=== PATIENT | male | born 1975 | race Hispanic/Latino ===

== ENCOUNTER 2024-05-01 07:48 | Observation (INO) | payer OTHER ==
[2024-05-01] VITALS (21 sets, daily range): BP systolic 107–150; BP diastolic 48–76; PULSE 80–110; RESP 16–20; TEMP 98.1–99; O2SAT 99–100
[~2024-05-01] VITALS: Ht 185.4 cm; Wt 117.9 kg
[2024-05-01 08:12] LABS: BASOPHILS # (AUTO) 0.02 K/uL (0.00-0.20); BASOPHILS % (AUTO) 0.3 % (0.0-5.0); EOSINOPHILS # (AUTO) 0.01 K/uL (0.00-0.70); EOSINOPHILS % (AUTO) 0.1 % (0.0-8.0); HEMATOCRIT 24.9 % (42-54); IMMATURE GRANULOCYTE ABSOLUTE 0.03 K/uL (0-1); LYMPHOCYTES # (AUTO) 0.4 K/uL (1.0-4.8); LYMPHOCYTES % (AUTO) 5.6 % (21.0-51.0); MEAN CORPUSCULAR HEMOGLOBIN 32.2 pg (27.0-33.0); MEAN CORPUSCULAR HGB CONC 34.1 g/dL (32.0-36.0); MEAN CORPUSCULAR VOLUME 94.3 fL (79-99); MONOCYTES # (AUTO) 0.9 K/uL (0.1-1.0); MONOCYTES % (AUTO) 12.4 % (3.0-13.0); NEUTROPHILS # (AUTO) 5.8 K/uL (1.8-7.7); NEUTROPHILS % (AUTO) 81.2 % (40.0-77.0); PLATELET COUNT (AUTO) 124 K/uL (130-400); RED BLOOD CELL COUNT(AUTO) 2.64 MIL/uL (4.50-6.20); RED CELL DISTRIBUTION WIDTH 11.9 % (11.0-15.5); WHITE BLOOD COUNT (AUTO) 7.2 K/uL (4.8-10.8)
--- NOTE | 2024-05-01 08:16 | ERN ---
General Chief Complaint: Shortness of Breath Stated Complaint: SOB, COUGH, FEVER Time Seen by MD: 07:55 Source: patient History of Present Illness Initial Comments Patient is a 49-year-old male coming in to be evaluated for shortness of breath. Patient has a history of end-stage renal disease requiring dialysis and his dialysis session was today. He states that he has been having a cough which has been getting worse along with the cough patient states he has been having fever and chills. Allergies: Coded Allergies: Influenza Virus Vaccines (Unverified Allergy, Intermediate, 05/01/24) adhesive tape (Unverified Allergy, Intermediate, 05/01/24) Past Medical History Past Medical History: Diabetes-Type II, Hypertension Past Surgical History: Other Surgical History Other: LAVG ROS Dictation CONSTITUTIONAL: No chills, no fever, no weakness, no diaphoresis, no malaise. HEAD/FACE: No signs of trauma. EENT: No eye pain, no blurred vision, no tearing, no double vision, no ear pain, no ear discharge, no nose pain, no nasal congestion, no throat pain, no throat swelling, no mouth pain. RESPIRATORY: No cough, no orthopnea, no SOB, no stridor, no wheezing. CARDIOVASCULAR: No chest pain, no edema, no palpitations, no syncope. GASTROINTESTINAL/ABDOMINAL: No abdominal pain, no constipation, no diarrhea, no nausea, no vomiting. GENITOURINARY: No abnormal discharge, no dysuria, no frequent urination, no hematuria. No complaints of pain in the genitals. MUSCULOSKELETAL: No back pain, no gout, no joint pain, no joint swelling, no muscle pain, no muscle stiffness, no neck pain. INTEGUMENTARY: No change in color, no change in hair/nails, no dryness, no lesion, no lumps, no rash. NEUROLOGICAL/PSYCH: No anxiety, not depressed, no emotional problem, no he adache, no numbness, no pre-existing deficit, no history of seizures, no tremors, no weakness. HEMATOLOGIC/LYMPHATIC: Not anemic, no history of blood clots, no apparent bleeding, no bruising, glands not swollen. All Systems Negative, Except as Noted. Physical Exam Physical Exam Dictation VITAL SIGNS: Reviewed. GENERAL APPEARANCE: Alert, oriented x3, no acute distress, obese. HEAD AND FACE: Non-traumatic. EYES: PERRL, pink conjunctivas, eyelid no trauma, anterior chamber clear. EARS: Pinnas intact and no signs of trauma or erythema. Ear canals clear and no discharge. TMs no erythema. NOSE: No discharge, no bleeding. OROPHARYNX: Mouth normal, teeth no caries, tongue pink. Pharynx clear, no erythema. Tonsils no exudates, no abscesses noted. Mucous membrane moist. NECK: Supple, non-tender, no thyromegaly, no masses, no JVD, no bruits. BREAST: Deferred. CHEST: No tenderness, no crepitus, no paradoxical movement, no retractions. LUNGS: Clear, well-ventilated, symmetric, no rales, no wheezing, no rhonchi, no stridor, good breath sounds bilaterally. HEART: Regular rate, regular rhythm, no murmur, no gallops. VASCULAR: No peripheral edema. ABDOMEN: Soft, positive bowel sounds, nondistended, no guarding, nontender, no rebound, no masses no hepatomegaly, no splenomegaly, no Stearns's sign, no hernias. RECTAL: Deferred. GENITAL: Deferred. NEUROLOGICAL: Normal speech, gross motor function intact, gross sensory function intact. MUSCULOSKELETAL: Neck nontender, full range of motion, back nontender, full range of motion. EXTREMITIES: Nontender, full range of motion. SKIN: Color pink, dry, no turgor, no rash, no lacerations, no abrasions, no contusions. LYMPHATICS: Deferred. Results Laboratory and Microbiology Lab and Micro Result Laboratory Tests Test 05/01/24 08:00 05/01/24 08:14 White Blood Count 7.2 K/uL (4.8-10.8) Red Blood Count 2.64 MIL/uL (4.50-6.20) L Hemoglobin 8.5 g/dL (14.0-18.0) L Hematocrit 24.9 % (42-54) L Mean Corpuscular Volume 94.3 fL (79-99) Mean Corpuscular Hemoglobin 32.2 pg (27.0-33.0) Mean Corpuscular Hemoglobin Concent 34.1 g/dL (32.0-36.0) Red Cell Distribution Width 11.9 % (11.0-15.5) Platelet Count 124 K/uL (130-400) L Mean Platelet Volume 10.8 fL (7.5-10.5) H Immature Granulocyte % (Auto) 0.4 % (0-1) Neutrophils (%) (Auto) 81.2 % (40.0-77.0) H Lymphocytes (%) (Auto) 5.6 % (21.0-51.0) L Monocytes (%) (Auto) 12.4 % (3.0-13.0) Eosinophils (%) (Auto) 0.1 % (0.0-8.0) Basophils (%) (Auto) 0.3 % (0.0-5.0) Neutrophils # (Auto) 5.8 K/uL (1.8-7.7) Lymphocytes # (Auto) 0.4 K/uL (1.0-4.8) L Monocytes # (Auto) 0.9 K/uL (0.1-1.0) Eosinophils # (Auto) 0.01 K/uL (0.00-0.70) Basophils # (Auto) 0.02 K/uL (0.00-0.20) Absolute Immature Granulocyte (auto 0.03 K/uL (0-1) Nucleated Red Blood Cells 0.0 % (0.0-0.19) White Cell Morphology Comment See comments Prothrombin Time 11.0 SEC (9.6-11.6) Prothromb Time International Ratio 1.02 (0.85-1.15) Sodium Level 136 mmol/L (136-145) Potassium Level 5.2 mmol/L (3.5-5.1) H Chloride Level 96 mmol/L (101-111) L Carbon Dioxide Level 28 mmol/L (21-32) Blood Urea Nitrogen 71 mg/dL (7-18) H Creatinine 11.5 mg/dL (0.5-1.3) *H Glomerular Filtration Rate Calc 5 mL/min (>90) Random Glucose 105 mg/dL (70-105) Total Calcium 8.5 mg/dL (8.5-10.1) Total Creatine Kinase 133 U/L (21-232) Troponin I High Sensitivity 144 ng/L (4-75) *H B-Type Natriuretic Peptide 2410 pg/mL (0-100) H Influenza Type A Antigen Positive For Type A Influenza Type B Antigen Negative For Type B SARS-CoV-2, RNA, NAAT NEGATIVE SARS CoV-2 Group A Streptococcus Rapid negative (NEGATIVE) Labs Reviewed?: Yes EKG/XRAY/US/CT/MRI EKG Comment 05/01/2024 time 8:14 a.m. Ventricular rate [address] wave elevation depression GA 171 X-RAY Comment IMAGING REPORT Signed PATIENT: AYDE WALDEN MR#: [id number] : 1975 SEX: M AGE: 49 LOCATION: [facility] ORDER 6 STATUS: REG ER REPORT#: [id number] SERVICE 5 REASON: sob ORDERING PHYSICIAN: CLEMENTINE YOUNG MD PROCEDURE: CXR1VW - CHEST 1VW CHEST 1VW REASON: sob COMPARISON: None. FINDINGS: Heart size is normal. There is mild pulmonary vascular congestion. Peripheral portions of the lungs are clear. Mediastinum and bony thorax appear unremarkable IMPRESSION: 1. Mild pulmonary vascular congestion. DICTATED BY: MICHAEL HOLLOWAY MD DATE: 05/01/24835 ELECTRONICALLY SIGNED BY: MICHAEL HOLLOWAY MD DATE: 05/01/24838 [facility] MDM: Differential diagnosis: Influenza a, septic, ACS, end-stage renal disease requiring dialysis Rationale: Tests considered and ordered secondary to shared decision making include: labs, ECG and radiology Previous outside records reviewed: Old ER visits. Risk of complication and/or morbidity or mortality of patient management: None Medications-Per medication reconciliation Need for hospitalization: Patient does meet criteria for hospitalization. Need for emergency major/minor surgery: No There are no social concerns with this patient. Prescription drug management Prescriptions will include symptomatic care Patient's prior external medical records from other ER visits were reviewed by me as indicated. Prior testing and results from previous visits were reviewed. Prior tests were taken into account with medical decision making and resource utilization, independent historian/historians were used to obtain complete medical history. I independently interpreted the test that were performed, results were reviewed by me and considered findings on radiology if ordered. Medical management and examination interpretation discussions were had by me with other qualified healthcare professionals as indicated for the patient's care. Patient is a 49-year-old male coming in to be evaluated for shortness of breath. Patient does have a history of end-stage renal disease requiring dialysis. Patient states that he has been feeling shortness of breath and fever plus chills. Patient gets dialyzed Wednesday was then Fridays has not gotten dialyzed today. Patient will be admitted under the care of hospitalist group for ongoing management. ED Course Orders Procedure Category Date Status Time Cbc With Differential LAB 05/01/24 Complete 07:56 Prothrombin Time With LAB 05/01/24 Complete INR 07:56 B-Type Natriuretic LAB 05/01/24 Complete Peptide 07:56 Chest 1vw RAD 05/01/24 Resulted 07:56 12 Lead Ekg Tracing- EKG 05/01/24 Complete Technical 07:56 Creatine Kinase, Total LAB 05/01/24 Complete 07:56 Troponin I High LAB 05/01/24 Complete Sensitivity 07:56 Basic Metabolic Panel LAB 05/01/24 Complete 07:56 Covid Rna Naat LAB 05/01/24 Complete 07:56 Influenza Type A & B, LAB 05/01/24 Complete Rapid 07:56 Acetaminophen 500mg PHA 05/01/24 Complete Tab (Tylenol 500mg T 08:00 Rapid (Group A Strep) LAB 05/01/24 Complete 07:56 Albuterol 0.083% PHA 05/01/24 In Process 2.5mg/3ml (Proventil 09:00 Edm Admit Bridge Order ADM 05/01/24 Verified 09:30 Vital Signs(Adult CPOE 05/01/24 Verified Hospitalist) 09:30 Nurse To Enter Home CPOE 05/01/24 Verified Medication 09:30 Admit Orders ADM 05/01/24 Verified 09:30 Current Medications Medications (Trade) Dose Ordered Sig/Derek Route PRN Reason Start Time Stop Time Status Last Admin Dose Admin Acetaminophen (TYLenol 500MG TAB) 1,000 mg ONCE ONCE PO 05/01/24 08:00 05/01/24 08:01 DC 05/01/24 08:46 Albuterol Sulfate (Proventil 0.083% 2.5mg/3ml) 10 mg ONCE IH 05/01/24 09:00 05/31/24 08:59 05/01/24 09:13 Vital Signs Date Time Temp Pulse Resp B/P (MAP) Pulse Ox O2 Delivery O2 Flow Rate FiO2 05/01/24 09:16 94 16 05/01/24 08:46 100.8 05/01/24 08:20 100.8 80 16 171/80 98 Room Air* 0 21 05/01/24 07:50 101.7 97 20 100 0 Critical Care Note Comments Critical Care Procedure Note Authorized and Performed by: me Total critical care time: Approximately 36 minutes Due to a high probability of clinically significant, life threatening deterioration, the patient required my highest level of preparedness to intervene emergently and I personally spent this critical care time directly and personally managing the patient. This critical care time included obtaining a history; examining the patient; pulse oximetry; ordering and review of studies; arranging urgent treatment with development of a management plan; evaluation of patient's response to treatment; frequent reassessment; and, discussions with other providers. This critical care time was performed to assess and manage the high probability of imminent, life-threatening deterioration that could result in multi-organ failure. It was exclusive of separately billable procedures and treating other patients and teaching time. Please see MDM section and the rest of the note for further information on patient assessment and treatment. DX & DISP Disposition: Inpatient Decision to Admit Time: 09:32 Departure Impression: Primary Impression: Influenza Additional Impressions: ACS (acute coronary syndrome), Viral pneumonia Condition: Stable Referrals: SELF,REFERRAL (PCP) CLEMENTINE YOUNG MD May 01, 2024 08:16
[2024-05-01 08:23] LABS: INR 1.02 (0.85-1.15)
[2024-05-01 08:27] LABS: POTASSIUM 5.2 mmol/L (3.5-5.1)
[2024-05-01 08:30] LABS: CREATININE 11.5 mg/dL (0.5-1.3)
[2024-05-01 08:35] LABS: RAPID GROUP A STREP negative (NEGATIVE)
--- NOTE | 2024-05-01 08:36 | EKG ---
[facility] Test Date: 2024-05-01 Test Time: 08:14:52 Pat Name: AYDE WALDEN Department: ED Room: ED Gender: M Kaiako Kohanga Reo: [id number] : 1975 Requested By: CLEMENTINE YOUNG Order Number: [id number] Reading MD: Caleb Allison Measurements Intervals [place] Rate: 92 P: 57 UT: 171 QRS: 8 QRSD: 88 T: 77 QT: 327 QTc: 404 Interpretive Statements Sinus rhythm No previous ECG available for comparison Electronically Signed On 05-01-2024 11:26:44 GED INSTRUCTOR by Caleb Allison Please click the below link to view image of tracing.
[2024-05-01 08:39] LABS: SARS-CoV-2, RNA, NAAT NEGATIVE SARS CoV-2 (NEGATIVE)
--- NOTE | 2024-05-01 08:39 | HMCIMG ---
CHEST 1VW REASON: sob COMPARISON: None. FINDINGS: Heart size is normal. There is mild pulmonary vascular congestion. Peripheral portions of the lungs are clear. Mediastinum and bony thorax appear unremarkable IMPRESSION: 1. Mild pulmonary vascular congestion.
[2024-05-01 08:43] LABS: INFLUENZA TYPE B Negative For Type B (NEGATIVE)
[2024-05-01] MEDS: acetaMINOPHEN 500 MG TABLET PO ONE (08:46)
[2024-05-01 09:04] LABS: INFLUENZA TYPE A Positive For Type A (NEGATIVE)
[2024-05-01 09:10] LABS: B-TYPE NATRIURETIC PEPTIDE 2410 pg/mL (0-100)
[2024-05-01] MEDS: ALBUTEROL 0.083% 2.5 MG/3 ML INH IH SCH (09:13)
[2024-05-01] MEDS ORDERED: ondanSETRON 4MG INJ IVP PRN (10:00)
[2024-05-01] MEDS ORDERED: IpraTROPium/alBUTERol SULFATE 3 ML SOLUTION IH PRN (10:00)
[2024-05-01] MEDS ORDERED: PHARMACY COMMUNICATION 1 EACH EACH MISC SCH (10:00)
[2024-05-01] MEDS ORDERED: VANCOMYCIN PROTOCOL PER PHARMACY IV SCH (10:00)
[2024-05-01 10:11] LABS: HEMOGLOBIN A1C 5.8 % (4.0-6.0)
[2024-05-01] MEDS: BUDESONIDE 0.5 MG/2 ML INH IH SCH (10:15)
[2024-05-01] MEDS: SODIUM CHLORIDE 3% FOR INHALATION 4 ML/AMP VIAL.NEB IH ONE ×2 (10:15→23:31)
[2024-05-01] MEDS: VANCOMYCIN 2GM/500 ML BAG 500 ML IV ONE (10:18)
--- NOTE | 2024-05-01 10:21 | HP ---
[facility] HISTORY AND PHYSICAL Date of Service: May 01, 2024 Time of Service: 10:03 HISTORY OF PRESENT ILLNESS: Date of Service: 05/01/2024, Patient was seen in ER Room 13, 49-year-old male with history of ESRD (MWF HD), prior history of hypertension (currently not on antihypertensive therapy as outpatient), who presented to the ER with chief complaint of shortness of breath. Symptoms started yesterday evening and progressively worsened overnight. Patient has been having fevers, chill, cough, rhinorrhea and congestion. Overnight, patient states that he was significantly short of breath prompting him to come to the ER for further evalu ation. Patient is followed by Nephrology in [place] and he has been dialysis patient for the past two years. last dialysis session was on Wednesday last week. Patient is dialyzed usually with a left arm AV fistula and patient states that he underwent full session of hemodialysis on Wednesday. Patient denies any previous antibiotic drug allergies. On presentation to the hospital, patient was febrile with T-max of 101.7 F, heart rate fluctuating between 90s to 110s with sinus tachycardia and saturating 98% on room air. Labs on presentation showed WBC count of 7200 with neutrophilia, hemoglobin of 8.5, platelet count of 124,000. BMP remarkable for sodium of 136, potassium 5.2, creatinine of 11.5, BUN of 71, high sensitivity troponin was elevated at 144 and BNP noted to be at 2410. Chest x-ray showed bilateral infiltrates concerning for pneumonia with a component of pulmonary edema. Patient was found to be influenza positive. Patient will be admitted for further management of acute hypoxemic respiratory f ailure with demand ischemia and influenza bronchopneumonia with underlying sepsis. Patient will be started on antiviral agent with Tamiflu, and broad- spectrum antibiotics. Consultation with Nephrology will be requested for scheduled hemodialysis. We will have Cardiology and pulmonology follow up with this patient. Anticipate hospitalization for at least 48-72 hours. REVIEW OF SYSTEMS CONSTITUTIONAL: Fevers, chills, malaise NEUROLOGICAL: Denies headache, amaurosis fugax, motor weakness, sensory deficit, vertigo/spinning sensation, gait abnormalities, or tremors. ENT: No hearing loss, otalgia, otorrhea, rhinitis, rhinorrhea, hoarseness, or sore throat. CARDIOVASCULAR: Patient reports having mild chest discomfort with coughing PULMONARY: Shortness of breath, PND, orthopnea SLEEP: Denies morning headaches, daytime somnolence or napping. Denies difficulty falling asleep, staying asleep, waking from sleep. Denies knowledge of snoring. GASTROINTESTINAL: Denies any type of dysphagia to either liquids or solids. De nies nausea, vomiting, pyrosis, early satiety, abdominal pain, diarrhea, constipation, or changes in stool consistency or caliber. Denies coffee-ground emesis, hematemesis, hematochezia, or melanotic stools. GENITOURINARY: Denies frequency, urgency, nocturia, hematuria or incontinence (Storage/Irritative symptoms.) Low urinary stream, straining to void, urinary intermittency or hesitancy, splitting of the voiding stream, terminal dribbling. ENDOCRINOLOGIC: Denies polyuria, polydipsia, polyphagia or heat/cold intolerances. HEMATOLOGIC: Denies thrombophilia/previous clots, or coagulopathy/bleeding disorders. ONCOLOGIC: Denies personal history of malignancy. DERMATOLOGIC: Denies rashes or pruritus. PSYCHIATRIC: Denies any suicidal or homicidal ideation. Denies hallucinations. PAST MEDICAL HISTORY: ESRD for the past two years, prior history of hypertension but currently not on any height antihypertensives PAST SURGICAL HISTORY: History of pilonidal cyst drainage, left arm AV fistula placement history of eye surgery, history of incision and drainage of back abscess PAST SOCIAL HISTORY: Currently denies any smoking or alcohol consumption, patient is currently disabled, independent with ADLs FAMILY HISTORY: Denies pertinent family history Allergies: Patient has allergic reaction to influenza vaccine in adhesive tape Medications: Patient takes lactulose daily for history of ileus Coded Allergies: Influenza Virus Vaccines (Unverified Allergy, Intermediate, 05/01/24) adhesive tape (Unverified Allergy, Intermediate, 05/01/24) PHYSICAL EXAM GENERAL APPEARANCE: The patient is awake, alert, and oriented, in no acute cardiopulmonary distress. NEUROLOGICAL: Cranial nerves II-XII grossly intact. Motor is 5/5 in bilateral upper and lower extremities proximal to distal. No sensory deficits. HEENT: Face is symmetric. Pupils are equal and reactive. Extraocular movements are intact. NECK: Supple. No JVD. No thyromegaly. No submental, submandibular, pre- /postauricular, occipital or supraclavicular lymphadenopathy. CHEST: Normal chest expansion. No Telemetry. LUNGS: Crackles noted at bilateral lung bases with rhonchorous breath sounds CARDIOVASCULAR: Regular. S1 and S2 normal. No appreciable rubs, murmurs or gallops. ABDOMEN: Soft, nontender, and nondistended. There is no rebound, voluntary guarding, or rigidity. : Deferred. No T[place]arez. EXTREMITIES: Non-edematous and not cyanotic. No clubbing. Good capillary refill. SKIN: No skin breakdown. Vital Sign (Last 24 Hours) 05/01/24 09:33 Temp 101.1 Pulse 102 Resp 18 B/P (MAP) 148/66 Pulse Ox 100 O2 Delivery Room Air* O2 Flow Rate 0 FiO2 21 LABS: Laboratory: Test 05/01/24 08:14 05/01/24 08:00 Range/Units Influenza Type A Antigen Positive For Type A *A NEGATIVE Influenza Type B Antigen Negative For Type B NEGATIVE SARS-CoV-2, RNA, NAAT NEGATIVE SARS CoV-2 NEGATIVE Group A Streptococcus Rapid negative NEGATIVE White Blood Count 7.2 4.8-10.8 K/uL Red Blood Count 2.64 L 4.50-6.20 MIL/uL Hemoglobin 8.5 L 14.0-18.0 g/dL Hematocrit 24.9 L 42-54 % Mean Corpuscular Volume 94.3 79-99 fL Mean Corpuscular Hemoglobin 32.2 27.0-33.0 pg Mean Corpuscular Hemoglobin Concent 34.1 32.0-36.0 g/dL Red Cell Distribution Width 11.9 11.0-15.5 % Platelet Count 124 L 130-400 K/uL Mean Platelet Volume 10.8 H 7.5-10.5 fL Immature Granulocyte % (Auto) 0.4 0-1 % Neutrophils (%) (Auto) 81.2 H 40.0-77.0 % Lymphocytes (%) (Auto) 5.6 L 21.0-51.0 % Monocytes (%) (Auto) 12.4 3.0-13.0 % Eosinophils (%) (Auto) 0.1 0.0-8.0 % Basophils (%) (Auto) 0.3 0.0-5.0 % Neutrophils # (Auto) 5.8 1.8-7.7 K/uL Lymphocytes # (Auto) 0.4 L 1.0-4.8 K/uL Monocytes # (Auto) 0.9 0.1-1.0 K/uL Eosinophils # (Auto) 0.01 0.00-0.70 K/uL Basophils # (Auto) 0.02 0.00-0.20 K/uL Absolute Immature Granulocyte (auto 0.03 0-1 K/uL Nucleated Red Blood Cells 0.0 0.0-0.19 % White Cell Morphology Comment See comments Prothrombin Time 11.0 9.6-11.6 SEC Prothromb Time International Ratio 1.02 0.85-1.15 Sodium Level 136 136-145 mmol/L Potassium Level 5.2 H 3.5-5.1 mmol/L Chloride Level 96 L 101-111 mmol/L Carbon Dioxide Level 28 21-32 mmol/L Blood Urea Nitrogen 71 H 7-18 mg/dL Creatinine 11.5 *H 0.5-1.3 mg/dL Glomerular Filtration Rate Calc 5 >90 mL/min Random Glucose 105 70-105 mg/dL Total Calcium 8.5 8.5-10.1 mg/dL Total Creatine Kinase 133 21-232 U/L Troponin I High Sensitivity 144 *H 4-75 ng/L B-Type Natriuretic Peptide 2410 H 0-100 pg/mL Current Medications Medications (Trade) Dose Ordered Sig/Derek Route PRN Reason Start Time Stop Time Status Last Admin Dose Admin Acetaminophen (TYLenol 325MG TAB) 650 mg Q6H PRN PO MILD PAIN (1-3) 05/01/24 10:00 05/31/24 09:59 Albuterol (DUOneb) 1 udvial Q6H PRN IH SHORTNESS OF BREATH 05/01/24 10:00 05/31/24 09:59 Albuterol Sulfate (Proventil 0.083% 2.5mg/3ml) 10 mg ONCE IH 05/01/24 09:00 05/01/24 09:47 DC 05/01/24 09:13 10 MG Budesonide (Pulmicort 0.5 Mg/2ml) 0.5 mg Q12H IH 05/01/24 10:00 05/31/24 09:59 Heparin Sodium (Porcine) (HEParin 5,000 UNIT VIAL) 5,000 unit TID SQ 05/01/24 14:00 05/31/24 13:59 UNV Lactulose (Constulose 20gm/ 30ml Udcup) 30 gm DAILY PO 05/01/24 13:00 05/31/24 12:59 Ondansetron HCl (zoFRAN 4MG INJ) 4 mg Q6H PRN IVP NAUSEA/VOMITING 05/01/24 10:00 05/31/24 09:59 Pantoprazole Sodium (PROTonix 40MG INJ) 40 mg DAILY IVP 05/02/24 09:00 06/01/24 08:59 Pharmacy Profile Note (Lace Assessment) 1 each AD MISC 05/01/24 10:00 05/08/24 09:59 UNV Piperacillin Sod/ Tazobactam Sod (Zosyn 3.375gm+NS 50ml) 3.375 gm Q12H IVPB 05/01/24 10:00 05/11/24 09:59 Vancomycin HCl (Vancomycin Protocol) 1 each AD IV 05/01/24 10:00 05/15/24 09:59 DIAGNOSTICS / RADIOLOGY: SERVICE [id number] REASON: sob ORDERING PHYSICIAN: CLEMENTINE YOUNG MD PROCEDURE: CXR1VW - CHEST 1VW CHEST 1VW REASON: sob COMPARISON: None. FINDINGS: Heart size is normal. There is mild pulmonary vascular congestion. Peripheral portions of the lungs are clear. Mediastinum and bony thorax appear unremarkable IMPRESSION: 1. Mild pulmonary vascular congestion. DICTATED BY: MICHAEL HOLLOWAY MD DATE: 05/01/24835 ELECTRONICALLY SIGNED BY: MICHAEL HOLLOWAY MD DATE: 05/01/24838 ASSESSMENT: Sepsis, POA, 2/2 influenza bronchopneumonia Acute influenza multifocal bronchopneumonia, POA Rule out heart failure exacerbation with pulmonary edema, POA Acute hypoxemic respiratory failure, POA Anemia likely due to renal disease, POA Mild thrombocytopenia, POA Demand ischemia, POA Mild hyperkalemia, POA History of ESRD, POA Obesity POA Rule out ITZEL, POA Hx of Ileus, POA PLAN: Patient will be admitted to cardiac telemetry floor We will follow up blood cultures, sputum cultures, avoid any IV fluids due to dialysis status and underlying respiratory failure Patient will be started on renally dosed Tamiflu, pharmacy to dose Broad-spectrum antibiotics with vancomycin/Zosyn to cover for superimposed bacterial pneumonia, await sputum cultures, Legionella, mycoplasma and streptococcal serologies, deescalate antibiotics in 48-72 hours Trend cardiac panel and rule out ACS, obtain 2D echocardiogram to rule out heart failure/significant valvulopathy, BNP significantly elevated to 2400, appreciate recommendations by Dr. Santana with Cardiology, patient is followed by with Cardiology as outpatient Consultation with Nephrology will be requested for patient to resume with his dialysis, plan for hemodialysis later today, patient is on outpatient M, W, F HD Resume patient's home dose of lactulose Appreciate recommendations by pulmonology, continue with supplemental O2 therapy to maintain saturations greater than 92% All labs will be repeated in the morning Anticipate hospitalization for at least 48-72 hours Prognosis: Guarded Plan of care was discussed with patient at bedside, Joel Sanders MD Advanced Care Planning: Which of the following were discussed: Hospice care: Yes __ No _X_ Therapeutic options: Yes _X_ No __ Advance directives: Yes _X_ No __ Other discussions: Discussed with who?: Patient Voluntary nature of this service was explained to the patient? Yes _x_ No __ Amount of time spent: 20 minutes JOEL SANDERS MD May 01, 2024 10:21
[2024-05-01 10:25] LABS: ALBUMIN 3.4 g/dL (3.5-5.0); BILIRUBIN,DIRECT 0.1 mg/dL (0.0-0.3); BILIRUBIN,TOTAL 0.7 mg/dL (0.2-1.0); MAGNESIUM 1.9 mg/dL (1.80-2.40); THYROID STIMULATING HORMONE 0.72 uIU/mL (0.36-3.74); TOTAL PROTEIN, SERUM 7.2 g/dL (6.0-8.3)
[2024-05-01] MEDS: OSELTAMIVIR PHOSPHATE 75 MG CAP PO SCH (11:05)
[2024-05-01] MEDS: ASPIRIN 81MG CHEW TAB PO SCH (11:06)
--- NOTE | 2024-05-01 11:28 | CONS ---
CONSULT NOTE: CARDIOLOGY Reason for consult: Elevated trop HPI/story at presentation: This is a pleasant 49-year-old male with past medical history of breast with complaints of shortness of breath in the setting of influenza, volume overload and in the setting, was found to have elevated troponins and therefore, cardiology was consulted for further evaluation management. No active issues of chest pain at this time. Subjective: Past medical history: See below Allergies, Meds See chart Review of systems Review of Systems Constitutional: Negative for chills and fever. HENT: Negative for ear discharge and ear pain. Eyes: Negative for photophobia and discharge. Respiratory: Negative for cough, sputum production and stridor. Cardiovascular: Negative for chest pain and palpitations. Gastrointestinal: Negative for diarrhea and vomiting. Genitourinary: Negative for frequency. Musculoskeletal: Negative for myalgias. Skin: Negative for rash. Neurological: Negative for focal weakness and seizures. Endo/Heme/Allergies: Negative for polydipsia. Psychiatric/Behavioral: Negative for hallucinations. Vitals see chart PHYSICAL EXAMINATION GENERAL: The patient is alert and oriented*3 HEENT: Nonicteric sclerae, non traumatic HEART: Regular rate and rhythm with no murmurs LUNGS: Clear to auscultation bilaterally ABDOMEN: No acute issues, non tender GENITAL, RECTAL: deferred SKIN: No rash NEUROLOGIC: NFND EXTREMITIES: No edema ASSESSMENT VOLUME OVERLOAD At presentation, well-managed with dialysis Patient does not have urinary output RESPIRATORY FAILURE Possible pneumonia/volume overload in the differential Being managed per primary team In the setting of influenza, type A+, 04/27/2024 END-STAGE RENAL DISEASE On dialysis DEMAND ISCHEMIA With mildly elevated troponins Troponin of 144 at presentation, no chest pain EKG without significant ichemic changes 05/01/2024 HYPERTENSION, OBESITY, HYPERLIPIDEMIA CORE MEASURES pending OTHER MEDICAL PROBLEMS Anemia, thrombocytopenia PLAN 05/01/2024 Volume status best managed with dialysis patient is to have any significant urine output. [place] influenza likely source of ongoing respiratory issues and elevated troponins. Will manage conservatively. Echocardiogram is pending. No strong indication for full dose anticoagulation at this time. ATTESTATION I was involved substantially in the care of this patient Number and complexity of problems addressed: 1 acute illness with systemic features Amount and or complexity of data Review of prior external note(s) from each unique source: 2+ Ordering of each unique test : 0 Review of the result(s) of each unique test: 2+ Assessment requiring an independent historian(s): No Independent interpretation of test performed by another MD/QHCP/appropriate sour ce (not separately reported) : No Discussion of management or test interpretation with external MD/QHCP/appropriate source (not separately reported) : No Risk status (cardiac, billing related): Moderate SHANKAR CONDE MD May 01, 2024 11:28
[2024-05-01] MEDS ORDERED: 0.9% NACL 250ML 250 ML IV SCH (12:30)
[2024-05-01] MEDS: LACTULOSE 20 GM/30 ML UDCUP PO SCH (13:05)
--- NOTE | 2024-05-01 13:58 | PN ---
[facility] PROGRESS NOTE Date of Service: May 01, 2024 Time of Service: 13:36 SUBJECTIVE: This 49-year-old male with history of ESRD (MWF HD), prior history of hypertension (currently not on antihypertensive therapy as outpatient), who presented to the ER with chief complaint of shortness of breath. Symptoms started yesterday evening and progressively worsened overnight. Patient has be en having fevers, chill, cough, rhinorrhea and congestion. Overnight, patient states that he was significantly short of breath prompting him to come to the ER for further evaluation. On presentation to the hospital, patient was febrile with T-max of 101.7 F, heart rate fluctuating between 90s to 110s with sinus tachycardia and saturating 98% on room air. Labs on presentation showed WBC count of 7200 with neutrophilia, hemoglobin of 8.5, platelet count of 124,000. BMP remarkable for sodium of 136, potassium 5.2, creatinine of 11.5, BUN of 71, high sensitivity troponin was elevated at 144 and BNP noted to be at 2410. Chest x-ray showed bilateral infiltrates concerning for pneumonia with a component of pulmonary edema. Patient was found to be influenza positive. Patient is admitted for further management of acute hypoxemic respiratory failure with demand ischemia and influenza bronchopneumonia with underlying sepsis. The patient is seen in ED 13 and admits to having chills, fever, dry cough and congestion. He denies shortness of breath, chest pain, sore throat, nausea or vomiting at the moment. He has a temperature of 98.1 F which came down from 101.1 F. He is being hemodialyzed when seen. Patient is alert and oriented x3. REVIEW OF SYSTEMS CONSTITUTIONAL: Fevers, chills, malaise NEUROLOGICAL: Denies headache, amaurosis fugax, motor weakness, sensory deficit, vertigo/spinning sensation, gait abnormalities, or tremors. ENT: No hearing loss, otalgia, otorrhea, rhinitis, rhinorrhea, hoarseness, or sore throat. CARDIOVASCULAR: Patient reports having mild chest discomfort with coughing PULMONARY: Shortness of breath, PND, orthopnea SLEEP: Denies morning headaches, daytime somnolence or napping. Denies difficulty falling asleep, staying asleep, waking from sleep. Denies knowledge of snoring. GASTROINTESTINAL: Denies any type of dysphagia to either liquids or solids. Denies nausea, vomiting, pyrosis, early satiety, abdominal pain, diarrhea, constipation, or changes in stool consistency or caliber. Denies coffee-ground e mesis, hematemesis, hematochezia, or melanotic stools. GENITOURINARY: Denies frequency, urgency, nocturia, hematuria or incontinence (Storage/Irritative symptoms.) Low urinary stream, straining to void, urinary intermittency or hesitancy, splitting of the voiding stream, terminal dribbling. ENDOCRINOLOGIC: Denies polyuria, polydipsia, polyphagia or heat/cold intolerances. HEMATOLOGIC: Denies thrombophilia/previous clots, or coagulopathy/bleeding disorders. ONCOLOGIC: Denies personal history of malignancy. DERMATOLOGIC: Denies rashes or pruritus. PSYCHIATRIC: Denies any suicidal or homicidal ideation. Denies hallucinations. PHYSICAL EXAM GENERAL APPEARANCE: The patient is awake, alert, and oriented, in no acute cardiopulmonary distress. NEUROLOGICAL: Cranial nerves II-XII grossly intact. Motor is 5/5 in bilateral upper and lower extremities proximal to distal. No sensory deficits. HEENT: Face is symmetric. Pupils are equal and reactive. Extraocular movements are intact. NECK: Supple. No JVD. No thyromegaly. No submental, submandibular, pre-/posta uricular, occipital or supraclavicular lymphadenopathy. CHEST: Normal chest expansion. No Telemetry. LUNGS: Crackles noted at bilateral lung bases with rhonchorous breath sounds CARDIOVASCULAR: Regular. S1 and S2 normal. No appreciable rubs, murmurs or gallops. ABDOMEN: Soft, nontender, and nondistended. There is no rebound, voluntary guarding, or rigidity. : Deferred. No Tavarez. EXTREMITIES: Non-edematous and not cyanotic. No clubbing. Good capillary refill. SKIN: No skin breakdown. Vital Signs (last 8hr) Date Time Temp Pulse Resp B/P (MAP) Pulse Ox O2 Delivery O2 Flow Rate FiO2 05/01/24 12:19 98.1 100 18 143/71 99 Nasal Cannula* 2 28 05/01/24 11:20 98.1 103 18 111/51 100 Nasal Cannula 2.0 05/01/24 10:08 108 16 05/01/24 10:05 110 20 N/Cannula Low lpm 2.0 05/01/24 09:33 101.1 102 18 148/66 100 Room Air* 0 05/01/24 09:16 94 16 05/01/24 08:46 100.8 05/01/24 08:20 100.8 80 16 171/80 98 Room Air* 0 05/01/24 07:50 101.7 97 20 100 0 LABS: Laboratory: Test 05/01/24 09:55 05/01/24 08:14 05/01/24 08:00 Range/Units Erythrocyte Sedimentation Rate 75 H 0-20 MM/HR Hemoglobin A1c 5.8 4.0-6.0 % Estimated Average Glucose (eAG) 120 70-126 mg/dL Lactic Acid Level 1.9 0.8-2.5 mmol/L Magnesium Level 1.90 1.80-2.40 mg/dL Total Bilirubin 0.7 0.2-1.0 mg/dL Direct Bilirubin 0.1 0.0-0.3 mg/dL Aspartate Amino Transf (AST/SGOT) 15 10-37 U/L Alanine Aminotransferase (ALT/SGPT) 15 12-78 U/L Alkaline Phosphatase 105 50-136 U/L Total Creatine Kinase 124 21-232 U/L Troponin I High Sensitivity 176.9 *H 4-75 ng/L C-Reactive Protein, Quantitative 30.60 H 0.5-3.0 mg/L Total Protein 7.2 6.0-8.3 g/dL Albumin 3.4 L 3.5-5.0 g/dL Procalcitonin 0.40 0.05-0.5 ng/mL Thyroid Stimulating Hormone (TSH) 0.72 0.36-3.74 uIU/mL Influenza Type A Antigen Positive For Type A *A NEGATIVE Influenza Type B Antigen Negative For Type B NEGATIVE SARS-CoV-2, RNA, NAAT NEGATIVE SARS CoV-2 NEGATIVE Group A Streptococcus Rapid negative NEGATIVE White Blood Count 7.2 4.8-10.8 K/uL Red Blood Count 2.64 L 4.50-6.20 MIL/uL Hemoglobin 8.5 L 14.0-18.0 g/dL Hematocrit 24.9 L 42-54 % Mean Corpuscular Volume 94.3 79-99 fL Mean Corpuscular Hemoglobin 32.2 27.0-33.0 pg Mean Corpuscular Hemoglobin Concent 34.1 32.0-36.0 g/dL Red Cell Distribution Width 11.9 11.0-15.5 % Platelet Count 124 L 130-400 K/uL Mean Platelet Volume 10.8 H 7.5-10.5 fL Immature Granulocyte % (Auto) 0.4 0-1 % Neutrophils (%) (Auto) 81.2 H 40.0-77.0 % Lymphocytes (%) (Auto) 5.6 L 21.0-51.0 % Monocytes (%) (Auto) 12.4 3.0-13.0 % Eosinophils (%) (Auto) 0.1 0.0-8.0 % Basophils (%) (Auto) 0.3 0.0-5.0 % Neutrophils # (Auto) 5.8 1.8-7.7 K/uL Lymphocytes # (Auto) 0.4 L 1.0-4.8 K/uL Monocytes # (Auto) 0.9 0.1-1.0 K/uL Eosinophils # (Auto) 0.01 0.00-0.70 K/uL Basophils # (Auto) 0.02 0.00-0.20 K/uL Absolute Immature Granulocyte (auto 0.03 0-1 K/uL Nucleated Red Blood Cells 0.0 0.0-0.19 % White Cell Morphology Comment See comments Prothrombin Time 11.0 9.6-11.6 SEC Prothromb Time International Ratio 1.02 0.85-1.15 Sodium Level 136 136-145 mmol/L Potassium Level 5.2 H 3.5-5.1 mmol/L Chloride Level 96 L 101-111 mmol/L Carbon Dioxide Level 28 21-32 mmol/L Blood Urea Nitrogen 71 H 7-18 mg/dL Creatinine 11.5 *H 0.5-1.3 mg/dL Glomerular Filtration Rate Calc 5 >90 mL/min Random Glucose 105 70-105 mg/dL Total Calcium 8.5 8.5-10.1 mg/dL B-Type Natriuretic Peptide 2410 H 0-100 pg/mL Current Medications Medications (Trade) Dose Ordered Sig/Derek Route PRN Reason Start Time Stop Time Status Last Admin Dose Admin Acetaminophen (TYLenol 325MG TAB) 650 mg Q6H PRN PO MILD PAIN (1-3) 05/01/24 10:00 05/31/24 09:59 Albuterol (DUOneb) 1 udvial Q6H PRN IH SHORTNESS OF BREATH 05/01/24 10:00 05/31/24 09:59 Albuterol Sulfate (Proventil 0.083% 2.5mg/3ml) 10 mg ONCE IH 05/01/24 09:00 05/01/24 09:47 DC 05/01/24 09:13 10 MG Aspirin (Aspirin 81mg Chew Tab) 81 mg Q24H PO 05/01/24 11:00 05/31/24 10:59 05/01/24 11:06 81 MG Budesonide (Pulmicort 0.5 Mg/2ml) 0.5 mg Q12H IH 05/01/24 10:00 05/31/24 09:59 05/01/24 10:15 0.5 MG Epoetin Naga-epbx (Retacrit) 10,000 unit QMOWEFR[DIALYSIS] SQ 05/01/24 16:00 05/31/24 15:59 Heparin Sodium (Porcine) (HEParin 5,000 UNIT VIAL) 5,000 unit TID SQ 05/01/24 14:00 05/31/24 13:59 Lactulose (Constulose 20gm/ 30ml Udcup) 30 gm DAILY PO 05/01/24 13:00 05/31/24 12:59 05/01/24 13:05 30 GM Ondansetron HCl (zoFRAN 4MG INJ) 4 mg Q6H PRN IVP NAUSEA/VOMITING 05/01/24 10:00 05/31/24 09:59 Oseltamivir Phosphate (Tamiflu) 75 mg Q24H PO 05/01/24 10:30 05/01/24 12:25 DC 05/01/24 11:05 75 MG Oseltamivir Phosphate (Tamiflu) 75 mg Q24H PO 05/02/24 10:30 05/06/24 10:29 Pantoprazole Sodium (PROTonix 40MG INJ) 40 mg DAILY IVP 05/02/24 09:00 06/01/24 08:59 Pharmacy Profile Note (Lace Assessment) 1 each AD MISC 05/01/24 10:00 05/01/24 10:07 DC Piperacillin Sod/ Tazobactam Sod (Zosyn 3.375gm+NS 50ml) 3.375 gm Q12H IVPB 05/01/24 10:00 05/11/24 09:59 Sodium Chloride 250 ml @ 0 mls/hr AD IV 05/01/24 12:30 05/31/24 12:29 Sodium Chloride 1,000 ml @ 0 mls/hr ONCE IV 05/01/24 12:30 05/31/24 12:29 Vancomycin HCl 250 ml @ 125 mls/hr QMOWEFR[DIALYSIS] IV 05/03/24 16:00 05/13/24 15:59 Vancomycin HCl (Vancomycin Protocol) 1 each AD IV 05/01/24 10:00 05/15/24 09:59 DIAGNOSTICS / RADIOLOGY: [facility] [address] [place] [address] IMAGING REPORT Signed PATIENT: AYDE WALDEN MR#: [id number] : 1975 SEX: M AGE: 49 LOCATION: [facility] ORDER 6 STATUS: REG REPORT#: [id number] SERVICE 5 REASON: sob ORDERING PHYSICIAN: CLEMENTINE YOUNG MD PROCEDURE: CXR1VW - CHEST 1VW CHEST 1VW REASON: sob COMPARISON: None. FINDINGS: Heart size is normal. There is mild pulmonary vascular congestion. Peripheral portions of the lungs are clear. Mediastinum and bony thorax appear unremarkable IMPRESSION: 1. Mild pulmonary vascular congestion. DICTATED BY: MICHAEL HOLLOWAY MD DATE: 05/01/24835 ELECTRONICALLY SIGNED BY: MICHAEL HOLLOWAY MD DATE: 05/01/24838 ASSESSMENT: Sepsis, POA, 2/2 influenza bronchopneumonia Acute influenza multifocal bronchopneumonia, POA Rule out heart failure exacerbation with pulmonary edema, POA Acute hypoxemic respiratory failure, POA Anemia likely due to renal disease, POA Mild thrombocytopenia, POA Demand ischemia, POA Mild hyperkalemia, POA History of ESRD on hemodialysis, POA Obesity POA Rule out ITZEL, POA Hx of Ileus, POA PLAN: Patient will be admitted to cardiac telemetry floor Sepsis, POA, 2/2 influenza bronchopneumonia We will follow up blood cultures, sputum cultures, avoid any IV fluids due to dialysis status and underlying respiratory failure Continue renally dosed Tamiflu, pharmacy to dose Acute influenza multifocal bronchopneumonia, POA Acute hypoxemic respiratory failure, POA Pulmonology consult appreciated and recommended to keep the saturation above 92%. Broad-spectrum antibiotics with vancomycin/Zosyn pharmacy to dose to cover for superimposed bacterial pneumonia. Await sputum cultures, Legionella, mycoplasma and streptococcal serologies, deescalate antibiotics in 48-72 hours Rule out heart failure exacerbation with pulmonary edema, POA We will trend cardiac panel and rule out ACS. BNP significantly elevated to 2400, appreciate recommendations by Dr. Santana with Cardiology, patient is followed by with Cardiology as outpatient 2D echocardiogram to rule out heart failure/significant valvulopathy, done and results pending. Anemia likely due to renal disease, POA History of ESRD on hemodialysis, POA Patient is on hemodialysis on , , F as an outpatient. Continue Epoetin. BUN 71 and creatinine 11.5. K 5.2 Appreciate consultation with Nephrology was obtained for patient to resume with his dialysis. Hypokalemia and magnesium protocol. Continue DVT prophylaxis. PRN medications for pain, fever, nausea and vomiting added. ATTESTATION BY PHYSICIAN I have seen and examined the patient. I reviewed the documentation, medical decision making, and treatment plan as noted by the resident provider above. I agree with the findings and plan of care. Amado Eid MD, KRUPALI P MD May 01, 2024 13:58
[2024-05-01] MEDS: 0.9%NACL 1000ML 1,000 ML IV SCH (14:02)
[2024-05-01] MEDS ORDERED: PoTASSium chloRIDE 20MEQ/100ML 100 ML IV PRN (14:30)
[2024-05-01] MEDS ORDERED: MAGNESIUM 2GM PREMIX 50ML 50 ML IV PRN (14:30)
[2024-05-01] MEDS ORDERED: DEXTROSE 50%-WATER 50 ML DISP.SYRIN IV PRN (14:30)
[2024-05-01] MEDS ORDERED: PoTASSium chloRIDE 20MEQ ER 20 MEQ ERTAB PO PRN (14:30)
[2024-05-01] MEDS ORDERED: PoTASSium chl 10% ELIXIR 20MEQ 20 MEQ/15 ML UDCUP PO PRN (14:30)
[2024-05-01] MEDS ORDERED: GLUCAGON 1MG KIT 1 MG ML IM PRN (14:30)
[2024-05-01] MEDS: acetaMINOPHEN 325 MG TAB PO PRN (14:42)
[2024-05-01] MEDS: ZOSYN 3.375GM +NS 50ML IVPB SCH (15:08)
[2024-05-01] MEDS: HEParin 5,000 UNIT VIAL SQ SCH (15:08)
[2024-05-01] MEDS: EPOETIN ALFA-EPBX (NON-ESRD) 10,000 UNIT/ML VIAL SQ SCH (17:10)
--- NOTE | 2024-05-01 19:48 | CONS ---
REFERRING PHYSICIAN: Joel Sanders MD REASON FOR CONSULTATION: Renal failure, volume overload. HISTORY OF PRESENT ILLNESS: A 49-year-old male with a history of diabetes mellitus and hypertension. He has a history of end-stage renal disease, on dialysis 3 times per week. The patient presented to the hospital with increasing shortness of breath and orthopnea. The patient was found to have underlying influenza pneumonia in the hospital. The patient also with evidence of significant volume overload on the chest x-ray. The patient is being seen for urgent dialysis. PAST MEDICAL HISTORY: Diabetes mellitus, hypertension, ESRD. PAST SURGICAL HISTORY: AV access, I and D of wounds. SOCIAL HISTORY: He lives independently. There is no active tobacco use. FAMILY HISTORY: No renal disease in the family. ALLERGIES: There are no allergies. MEDICATIONS: Noted. REVIEW OF SYSTEMS: GENERAL: He is feeling weak and tired. HEENT: No change in vision. No change in hearing. CARDIOVASCULAR: There is no current chest pain or palpitations. PULMONARY: As described above. GASTROINTESTINAL: He is tolerating a diet. MUSCULOSKELETAL: Complains of weakness. NEUROLOGIC: No seizures or focal deficits. PSYCHIATRIC: No history of hallucinations or psychosis. ENDOCRINE: No thyroid disease. HEME: History of anemia. No history of malignancy. PHYSICAL EXAMINATION: VITAL SIGNS: T-max 101 degrees Fahrenheit, heart rate in the 100s, blood pressure 146/66. GENERAL: He is a chronically ill male, lying in bed on the medical floor. HEENT: Head is atraumatic. Pupils equal, roving to light. Oropharynx is without exudate. Nares clear. NECK: There is no JVP. There is no thyromegaly, no mass. CARDIOVASCULAR: Regular. There is no S3, S4 gallop. LUNGS: Coarse with equal thoracic movement. ABDOMEN: Soft, nondistended, nontender. EXTREMITIES: Reveal no clubbing, no cyanosis. NEUROLOGICAL: He is awake. He is alert. He is oriented. SKIN: Reveals no rash or nodules. BACK: There is no CVA tenderness, no back deformities. LABORATORY DATA: Sodium 136, potassium is 5, BUN 71, creatinine is 11. Hemoglobin 8.5, hematocrit 24. IMPRESSION: * Influenza pneumonia. * Volume overload. * Diabetes mellitus. * Hypertension. * History of anemia. PLAN: The patient will receive dialysis on the day of this consultation. We will continue with maximal ultrafiltration as blood pressure allows. The patient can be given Epogen for the anemia. The patient is being treated for the influenza. We will continue to follow the patient closely. The patient with multiple questions, all of which were all answered. The patient's Tamiflu will be adjusted for his renal dysfunction and we will continue to follow closely. The patient with multiple questions, all of which were answered. TID: [id number] RECEIPT: [id number]
--- NOTE | 2024-05-01 23:05 | CONS ---
[facility] CONSULTATION NOTE Date Patient Seen: May 01, 2024 Time of Visit: 1430 Supervising Physician: Rachid Roberto MD Reason for Consultation: Flu Sepsis and Pneumonia Primary Care Physician: self referral Outpatient Specialists: [ ] Inpatient Consults: [facility], Cardiology (Dr Allison), Dr Curtis (Nepology) PROBLEM LIST: Sepsis, POA Bilateral viral pneumonia, POA, +Flu A Suspect superimposed bacterial pneumonia, POA CURB 65 1 (Low Risk) Suspect acute on chronic heart failure, POA ESRD in need of hemodialysis, POA LAVA to left arm Chronic anemia likely from chronic illness CKD, POA Mild thrombocytopenia Elevated troponin likely from demand ischemia, POA Suspected ITZEL undiagnosed and untreated , POA (STOP -BANG score 6 points, CO2 28) Obesity BMI 34.3 PLAN Patient is positive for influenza A - continue Tamiflu for 5 days Continue empiric antibiotics with vancomycin and Zosyn MRSA swab Chest x-ray in the morning Respiratory sputum culture ABG if respiratory failure suspected empiric antibiotics Tailor antibiotics to cultures Blood cultures Avoid steroids if possible due to influenza infection reconsider empiric treatment if no improvement in 72 hours Hemodialysis per nephrology recommendations -Arrange outpatient pulmonology referral for sleep study, PFT and follow-up management upon discharge HPI: This is a 49-year-old obese male with a past medical history for type 2 diabetes mellitus, hypertension, and ESRD on hemodialysis who came into the emergency department for evaluation no shortness breath and fevers. Patient reports he started with a cough approximately three days ago while he was working on the yard and a sneezing spell. He reports he did not think much of it due to clear nasal drainage did not look green or yellow. Today she decided to come into the emergency department because he felt increasing shortness of breath chills and a fever of 101F at home. The patient was admitted by the [facility] team and we are consulted for influenza, sepsis and pneumonia. On behalf of [facility] thank you for given us the opportunity to participate in the care of this patient. On arrival to the ED patient has a temperature of 101.7F, he was hypotensive of 171/80 with a heart rate in the 80s respiratory rate of 16 unlabored saturating 98% on room air. Initial laboratory unremarkable H&H of 8.4/24.9, platelet count of 738158 neutrophils of 81.2 ESR 75. Chemistry potassium was 4.2 chloride 96 BUN 71 creatinine 1.5 GFR of five consistent with ESRD sensitive troponin was 144 total CK 133, BNP 2410. On assessment of patient who was awake alert and oriented x3 and receiving hemodialysis treatment. Patient had chills and tremors at the time of my visit. Temperature was 99 degrees F he continues hemodynamically stable heart rate in the 80s saturating 99% with 2 L via nasal cannula. Serial troponins were 144, 176 and 265. Cardiology was consulted per primary CRP 30.60 albumin 3.4. Patient is positive for influenza type a he is negative for type B negative for COVID-19 and negative for strep throat. Patient was placed on vancomycin Zosyn and Tamiflu per primary team. On chest x-ray mild pulmonary vascular congestion, heart size is normal, peripheral portions of the lungs are clear. No pneumothorax or pleural effusion noted. PAST MEDICAL HX: Hypertension ESRD on hemodialysis. PAST SURGICAL HX: History of I and D and drainage of back abscess Left arm AV fistula placement History of eye surgery SOCIAL HISTORY: No tobacco, ETOH, or illicit drug use Coded Allergies: Influenza Virus Vaccines (Unverified Allergy, Intermediate, 05/01/24) adhesive tape (Unverified Allergy, Intermediate, 05/01/24) REVIEW OF SYSTEMS: Const: Yes for fever, fatigue, and weight gain Eyes: Yes for surgery history ENT: Yes for nasal congestion, no ear pain no sore throat C/V: No chest pain, no palpitation yes for edema Resp: Yes for cough, yes for congestion, yes for shortness breath no wheezing GI: No abdominal pain, nausea vomiting constipation diarrhea : [No incontinence of or dyuria] M/S: [No joint or pain swelling] Skin: [No rash] Neuro: [no headache, focal numbness, or weakness, dizziness or seizures] Psych: [no depression or anxiety] Heme: [no abnormal bruising or bleeding] Lymph: [no swollen glands] PHYSICAL EXAM: GENERAL: alert, weak, awake oriented x 3 HEENT: EOMI, Sclera non icteric, moist mucosa NECK: Short neck, no JVD, trachea midline LUNGS: Coarse crackles breath sounds bilaterally. No wheezes HEART: Regular rate and rhythm. Normal S1 and S2, without murmurs ABD: Abdomen soft, nontender. Bowel sounds present EXT: No clubbing cyanosis or edema NEURO: Alert and oriented to person, follows commands Vital Signs (last 8hr) Date Time Temp Pulse Resp B/P (MAP) Pulse Ox O2 Delivery O2 Flow Rate FiO2 05/01/24 21:00 98.6 79 20 132/72 98 Nasal Cannula* 2.0 N/A 05/01/24 19:38 80 20 N/Cannula Low lpm 2.0 28 05/01/24 19:38 80 18 05/01/24 18:13 99.0 84 16 134/78 100 Nasal Cannula* 2 28 05/01/24 15:19 99.0 95 14 133/71 97 Nasal Cannula* 2 28 05/01/24 15:06 99.0 95 20 133/71 99 Nasal Cannula 2.0 LABS: Hematology Labs: Test 05/01/24 09:55 05/01/24 08:00 Range/Units Erythrocyte Sedimentation Rate 75 H 0-20 MM/HR White Blood Count 7.2 4.8-10.8 K/uL Red Blood Count 2.64 L 4.50-6.20 MIL/uL Hemoglobin 8.5 L 14.0-18.0 g/dL Hematocrit 24.9 L 42-54 % Mean Corpuscular Volume 94.3 79-99 fL Mean Corpuscular Hemoglobin 32.2 27.0-33.0 pg Mean Corpuscular Hemoglobin Concent 34.1 32.0-36.0 g/dL Red Cell Distribution Width 11.9 11.0-15.5 % Platelet Count 124 L 130-400 K/uL Mean Platelet Volume 10.8 H 7.5-10.5 fL Immature Granulocyte % (Auto) 0.4 0-1 % Neutrophils (%) (Auto) 81.2 H 40.0-77.0 % Lymphocytes (%) (Auto) 5.6 L 21.0-51.0 % Monocytes (%) (Auto) 12.4 3.0-13.0 % Eosinophils (%) (Auto) 0.1 0.0-8.0 % Basophils (%) (Auto) 0.3 0.0-5.0 % Neutrophils # (Auto) 5.8 1.8-7.7 K/uL Lymphocytes # (Auto) 0.4 L 1.0-4.8 K/uL Monocytes # (Auto) 0.9 0.1-1.0 K/uL Eosinophils # (Auto) 0.01 0.00-0.70 K/uL Basophils # (Auto) 0.02 0.00-0.20 K/uL Absolute Immature Granulocyte (auto 0.03 0-1 K/uL Nucleated Red Blood Cells 0.0 0.0-0.19 % White Cell Morphology Comment See comments Chemistry Labs: Test 05/01/24 14:00 05/01/24 09:55 05/01/24 08:00 Range/Units Total Creatine Kinase 146 21-232 U/L Troponin I High Sensitivity 265.4 *H 4-75 ng/L Hemoglobin A1c 5.8 4.0-6.0 % Estimated Average Glucose (eAG) 120 70-126 mg/dL Lactic Acid Level 1.9 0.8-2.5 mmol/L Magnesium Level 1.90 1.80-2.40 mg/dL Total Bilirubin 0.7 0.2-1.0 mg/dL Direct Bilirubin 0.1 0.0-0.3 mg/dL Aspartate Amino Transf (AST/SGOT) 15 10-37 U/L Alanine Aminotransferase (ALT/SGPT) 15 12-78 U/L Alkaline Phosphatase 105 50-136 U/L C-Reactive Protein, Quantitative 30.60 H 0.5-3.0 mg/L Total Protein 7.2 6.0-8.3 g/dL Albumin 3.4 L 3.5-5.0 g/dL Procalcitonin 0.40 0.05-0.5 ng/mL Thyroid Stimulating Hormone (TSH) 0.72 0.36-3.74 uIU/mL Sodium Level 136 136-145 mmol/L Potassium Level 5.2 H 3.5-5.1 mmol/L Chloride Level 96 L 101-111 mmol/L Carbon Dioxide Level 28 21-32 mmol/L Blood Urea Nitrogen 71 H 7-18 mg/dL Creatinine 11.5 *H 0.5-1.3 mg/dL Glomerular Filtration Rate Calc 5 >90 mL/min Random Glucose 105 70-105 mg/dL Total Calcium 8.5 8.5-10.1 mg/dL B-Type Natriuretic Peptide 2410 H 0-100 pg/mL Coagulation Labs: Test 05/01/24 08:00 Range/Units Prothrombin Time 11.0 9.6-11.6 SEC Prothromb Time International Ratio 1.02 0.85-1.15 DIAGNOSTICS / RADIOLOGY RESULTS: Signed PATIENT: AYDE WALDEN MR#: [id number] : 1975 SEX: M AGE: 49 LOCATION: ED ORDER 6 STATUS: REG ER REPORT#: [id number] SERVICE 5 REASON: sob ORDERING PHYSICIAN: CLEMENTINE YOUNG MD PROCEDURE: CXR1VW - CHEST 1VW CHEST 1VW REASON: sob COMPARISON: None. FINDINGS: Heart size is normal. There is mild pulmonary vascular congestion. Peripheral portions of the lungs are clear. Mediastinum and bony thorax appear unremarkable IMPRESSION: 1. Mild pulmonary vascular congestion. DICTATED BY: MICHAEL HOLLOWAY MD DATE: 05/01/24835 ELECTRONICALLY SIGNED BY: MICHAEL HOLLOWAY MD DATE: 05/01/24838 PLAN Patient is positive for influenza A - continue Tamiflu for 5 days Continue empiric antibiotics with vancomycin and Zosyn MRSA swab Chest x-ray in the morning Respiratory sputum culture ABG if respiratory failure suspected empiric antibiotics Tailor antibiotics to cultures Blood cultures Avoid steroids if possible due to influenza infection reconsider empiric treatment if no improvement in 72 hours Hemodialysis per nephrology recommendations -Arrange outpatient pulmonology referral for sleep study, PFT and follow-up management upon discharge NEURO: Minimize central acting medications as possible. Maintain fall precautions, adequate lighting during the day PULMONARY: Supplemental 02 as needed. Maintain aspiration precautions at all times CARDIOVASCULAR: Follow hemodynamics. Vital signs per facility protocol GI & NUTRITION: Continue with nutritional support. Continue stool softeners and laxatives as needed. KIDNEYS & ELECTROLYTES: Strict monitoring of intake, output and overall fluid balance. Avoid nephrotoxic medications to the extent possible. Medications to be dosed according to renal function. Monitor electrolytes and replace as needed ENDOCRINE: Maintain blood glucose between 100-180 at all times. Hypoglycemia protocol in place INFECTIOUS DISEASE: Trend temperature, WBC and procalcitonin level Follow cultures, deescalate antibiotics as soon as possible. Panculture if new onset fever ONCOLOGY/HEMATOLOGY/COAGULATION: Monitor for s/s of bleeding Monitor hemoglobin, coagulation studies as needed SKIN: Pressure ulcer prevention per facility protocol Specialty mattress ORTHO/REHAB: Continue PT/OT Prophylaxis: Continue GI and DVT prophylaxis Code Status: Full Resuscitation Disposition: TBD Other: Total patient care time exceeds 35 minutes excluding all procedures. SHAN VELAZQUEZ [facility] May 01, 2024 23:05
[2024-05-02] MEDS ORDERED: LACT10SO85 PO (02:09)
[2024-05-02] MEDS ORDERED: FOLI0.8T22 PO (02:09)
[2024-05-02 05:25] LABS: BASOPHILS # (AUTO) 0.01 K/uL (0.00-0.20); BASOPHILS % (AUTO) 0.2 % (0.0-5.0); EOSINOPHILS # (AUTO) 0.01 K/uL (0.00-0.70); EOSINOPHILS % (AUTO) 0.2 % (0.0-8.0); HEMATOCRIT 23.5 % (42-54); IMMATURE GRANULOCYTE ABSOLUTE 0.02 K/uL (0-1); LYMPHOCYTES # (AUTO) 0.9 K/uL (1.0-4.8); LYMPHOCYTES % (AUTO) 17.3 % (21.0-51.0); MEAN CORPUSCULAR HGB CONC 33.6 g/dL (32.0-36.0); MEAN CORPUSCULAR VOLUME 95.1 fL (79-99); MONOCYTES # (AUTO) 0.9 K/uL (0.1-1.0); MONOCYTES % (AUTO) 18.3 % (3.0-13.0); NEUTROPHILS # (AUTO) 3.2 K/uL (1.8-7.7); NEUTROPHILS % (AUTO) 63.6 % (40.0-77.0); PLATELET COUNT (AUTO) 121 K/uL (130-400); RED BLOOD CELL COUNT(AUTO) 2.47 MIL/uL (4.50-6.20); RED CELL DISTRIBUTION WIDTH 11.9 % (11.0-15.5)
[2024-05-02 05:44] LABS: ALBUMIN 3.1 g/dL (3.5-5.0); BILIRUBIN,TOTAL 0.6 mg/dL (0.2-1.0); POTASSIUM 4.9 mmol/L (3.5-5.1)
[2024-05-02 06:07] LABS: CREATININE 9.6 mg/dL (0.5-1.3)
--- NOTE | 2024-05-02 06:26 | HMCSR ---
APPROVED REPORT EXAM: Two-dimensional and M-mode echocardiogram with Doppler and color Doppler. Study Details: Hx: kidney disease INDICATION ICD: Elevated troponin 2D Dimensions RVDd5.1 cmLVEF(%)76.1 (>50%)LVED Vol(simp.)177.0 mL IVSd1.1 (0.7-1.1cm)FS(%)45 %LVES Vol(simp.)56.2 mL LVDd5.1 (3.8-5.6cm)LA (2D)5.5 (1.6-4.0cm)LVEF(%, simp.)68 % PWd1.3 (0.7-1.1cm)Ao Root(2D)3.5 (2.0-3.7cm)LA ESV INDEX (4CH)38.10 mL/m2 IVSs1.5 cmLVOT diam2.2 (1.8-2.4cm)LA ESV INDEX (2CH)35.40 mL/m2 LVDs2.8 (2.5-4.0cm)IVC diam1.8 cm PWs1.7 cm Deformation Strain Apical 4-20.0 % Apical 2-16.0 % Apical 3-22.0 % Global Strain-19.0 % M-Mode Dimensions EPSS0.9 cm LA (MM)6.1 (1.6-4.0cm) Ao Root(MM)3.6 (2.0-3.7cm) Aortic Valve AoV VTI0.4 mAo Mean GR16.0 mmHgLVOT VTI0.28 m Mitral Valve MV E Vmax82.9 cm/sDECEL Mlmb423 ms MV A Vmax77.0 cm/sP 1/2 T57 ms E/A ratio1.1MVA (PHT)3.9 cm2 MR Max PG21 mmHg TDI E/E' Medial5.9E/E' Lateral8.8 Medial E' Peak V14.10 cm/sLateral E' Peak V9.40 cm/s Pulmonary Valve PV VTI0.24 mPV Mean GR4 mmHg Tricuspid Valve RAP (EST) 8 mmHgRVSP8.0 mmHg Left Ventricle The left ventricle is mildly dilated. Hyperdynamic ventricle There is normal left ventricular wall th ickness. LVEF is >65%. E/A flow is fused. Right Ventricle The right ventricle is normal in size The right ventricular systolic function is normal. Atria The left atrium is severely dilated. The right atrium is moderately dilated. Aortic Valve Aortic valve leaflets are thickened and sclerotic but opens well. No aortic regurgitation is present. There is no aortic valvular stenosis. Mitral Valve Mitral valve leaflets open well. Calcified anterior mitral valve leaflet tip. There is trace of to l valve regurgitation noted. There is no mitral valve stenosis. Tricuspid Valve The tricuspid valve is normal in structure and function. There is no tricuspid valve regurgitation no adali. Pulmonic Valve Not well seen There is no pulmonic valvular regurgitation. Great Vessels The aortic root is normal in size. IVC is normal in size and collapses <50% with inspiration. Pericardium Small pericardial effusion. Other Information Quality : Fair Conclusion LVEF is >65%. E/A flow is fused. There is normal left ventricular wall thickness. The left ventricle is mildly dilated. Hyperdynamic ventricle The left atrium is severely dilated. The right atrium is moderately dilated. Mitral valve leaflets open well. Calcified anterior mitral valve leaflet tip. Small pericardial effusion. Normal pulmonary pressures Study quality was adequate
[2024-05-02] MEDS: SODIUM CHLORIDE 3% FOR INHALATION 4 ML/AMP VIAL.NEB IH ONE (07:25)
[2024-05-02 07:26] VITALS: PULSE 74; RESP 18
[2024-05-02 07:27] VITALS: RESP 20; O2SAT 100
[2024-05-02] MEDS: PANTOPrazole 40 MG/VIAL IVP SCH (08:45)
--- NOTE | 2024-05-02 09:29 | PN ---
[facility] PROGRESS NOTE Date Patient Seen: May 02, 2024 Time of Visit: 09:26 Supervising Physician: [Dr. Roberto] Primary Care Physician: self referral Outpatient Specialists: [ ] Inpatient Consults: [facility], Cardiology (Dr Allison), Dr Curtis (Neprhology) PROBLEM LIST: Sepsis, POA Bilateral viral pneumonia, POA, +Flu A Acute on chronic heart failure, POA ESRD in need of hemodialysis, POA LAVA to left arm Chronic anemia likely from chronic illness CKD, POA Mild thrombocytopenia Elevated troponin likely from demand ischemia, POA Suspected ITZEL undiagnosed and untreated , POA (STOP -BANG score 6 points, CO2 28) Obesity BMI 34.3 PLAN Patient is positive for influenza A - continue Tamiflu for 5 days Continue empiric antibiotics with vancomycin and Zosyn MRSA swab Chest x-ray in the morning Respiratory sputum culture ABG as needed empiric antibiotics Tailor antibiotics to cultures Blood cultures Avoid steroids if possible due to influenza infection reconsider empiric treatment if no improvement in 72 hours Hemodialysis per nephrology recommendations CPAP at night INTERVAL HISTORY: [Blood pressure is 141/75 with a heart rate of 78, afebrile. Patient continues on supplemental oxygen with 2 L NC. No fever overnight. He did have dialysis yesterday with 3000 mL of fluid removed. WBC today is five, hemoglobin 7.9, platelets 121. He has a markedly elevated CRP at 75, troponin gangrene around 102 100 but is downtrending. CMP is grossly unremarkable for dialysis patient. He is being followed by Nephrology, on epogen. His echocardiogram revealed an EF of 65% with severe left atrial dilation and moderate right atrial dilation as well as a small pericardial effusion. Cardiology is recommending conservative management for NSTEMI. Patient continues on Tamiflu for flu a treatment. Continues on vancomycin and zosyn per primary.] REVIEW OF SYSTEMS: Const: Yes for fever, fatigue, and weight gain Eyes: Yes for surgery history ENT: Yes for nasal congestion, no ear pain no sore throat C/V: No chest pain, no palpitation yes for edema Resp: Yes for cough, yes for congestion, yes for shortness breath no wheezing GI: No abdominal pain, nausea vomiting constipation diarrhea : [No incontinence of or dyuria] M/S: [No joint or pain swelling] Skin: [No rash] Neuro: [no headache, focal numbness, or weakness, dizziness or seizures] Psych: [no depression or anxiety] Heme: [no abnormal bruising or bleeding] Lymph: [no swollen glands] PHYSICAL EXAM: GENERAL: alert, weak, awake oriented x 3 HEENT: EOMI, Sclera non icteric, moist mucosa NECK: Short neck, no JVD, trachea midline LUNGS: Coarse crackles breath sounds bilaterally. No wheezes HEART: Regular rate and rhythm. Normal S1 and S2, without murmurs ABD: Abdomen soft, nontender. Bowel sounds present EXT: No clubbing cyanosis or edema NEURO: Alert and oriented to person, follows commands Vital Signs (last 8hr) Date Time Temp Pulse Resp B/P (MAP) Pulse Ox O2 Delivery O2 Flow Rate FiO2 05/02/24 07:27 20 N/Cannula Low lpm 2.0 28 05/02/24 07:26 74 18 05/02/24 07:15 98.6 78 18 141/75 98 Nasal Cannula* 2.0 N/A 05/02/24 06:11 82 18 138/70 98 Nasal Cannula* 2.0 N/A 05/02/24 05:16 98.6 84 18 140/72 100 Nasal Cannula* 2.0 N/A 05/02/24 02:09 98.4 85 16 124/67 96 Nasal Cannula* 2.0 N/A LABS: Hematology Labs: Test 05/02/24 05:10 05/01/24 09:55 05/01/24 08:00 Range/Units White Blood Count 5.0 # 4.8-10.8 K/uL Red Blood Count 2.47 L 4.50-6.20 MIL/uL Hemoglobin 7.9 L 14.0-18.0 g/dL Hematocrit 23.5 L 42-54 % Mean Corpuscular Volume 95.1 79-99 fL Mean Corpuscular Hemoglobin 32.0 27.0-33.0 pg Mean Corpuscular Hemoglobin Concent 33.6 32.0-36.0 g/dL Red Cell Distribution Width 11.9 11.0-15.5 % Platelet Count 121 L 130-400 K/uL Mean Platelet Volume 10.7 H 7.5-10.5 fL Immature Granulocyte % (Auto) 0.4 0-1 % Neutrophils (%) (Auto) 63.6 40.0-77.0 % Lymphocytes (%) (Auto) 17.3 L 21.0-51.0 % Monocytes (%) (Auto) 18.3 H 3.0-13.0 % Eosinophils (%) (Auto) 0.2 0.0-8.0 % Basophils (%) (Auto) 0.2 0.0-5.0 % Neutrophils # (Auto) 3.2 1.8-7.7 K/uL Lymphocytes # (Auto) 0.9 L 1.0-4.8 K/uL Monocytes # (Auto) 0.9 0.1-1.0 K/uL Eosinophils # (Auto) 0.01 0.00-0.70 K/uL Basophils # (Auto) 0.01 0.00-0.20 K/uL Absolute Immature Granulocyte (auto 0.02 0-1 K/uL Nucleated Red Blood Cells 0.0 0.0-0.19 % Erythrocyte Sedimentation Rate 75 H 0-20 MM/HR White Cell Morphology Comment See comments Chemistry Labs: Test 05/02/24 05:10 05/01/24 14:00 05/01/24 09:55 05/01/24 08:00 Range/Units Sodium Level 140 136-145 mmol/L Potassium Level 4.9 3.5-5.1 mmol/L Chloride Level 98 L 101-111 mmol/L Carbon Dioxide Level 32 21-32 mmol/L Blood Urea Nitrogen 53 H 7-18 mg/dL Creatinine 9.6 *H 0.5-1.3 mg/dL Glomerular Filtration Rate Calc 6 >90 mL/min Random Glucose 90 70-105 mg/dL Total Calcium 8.4 L 8.5-10.1 mg/dL Magnesium Level 2.00 1.80-2.40 mg/dL Total Bilirubin 0.6 0.2-1.0 mg/dL Aspartate Amino Transf (AST/SGOT) 14 10-37 U/L Alanine Aminotransferase (ALT/SGPT) 14 12-78 U/L Alkaline Phosphatase 93 50-136 U/L Troponin I High Sensitivity 168 *H 4-75 ng/L C-Reactive Protein, Quantitative 75.20 H 0.5-3.0 mg/L Total Protein 7.0 6.0-8.3 g/dL Albumin 3.1 L 3.5-5.0 g/dL Procalcitonin 0.92 H 0.05-0.5 ng/mL Total Creatine Kinase 146 21-232 U/L Hemoglobin A1c 5.8 4.0-6.0 % Estimated Average Glucose (eAG) 120 70-126 mg/dL Lactic Acid Level 1.9 0.8-2.5 mmol/L Direct Bilirubin 0.1 0.0-0.3 mg/dL Thyroid Stimulating Hormone (TSH) 0.72 0.36-3.74 uIU/mL B-Type Natriuretic Peptide 2410 H 0-100 pg/mL Coagulation Labs: Test 05/01/24 08:00 Range/Units Prothrombin Time 11.0 9.6-11.6 SEC Prothromb Time International Ratio 1.02 0.85-1.15 DIAGNOSTICS / RADIOLOGY RESULTS: Echocardiogram 05/01 Conclusion LVEF is >65%. E/A flow is fused. There is normal left ventricular wall thickness. The left ventricle is mildly dilated. Hyperdynamic ventricle The left atrium is severely dilated. The right atrium is moderately dilated. Mitral valve leaflets open well. Calcified anterior mitral valve leaflet tip. Small pericardial effusion. Normal pulmonary pressures Study quality was adequate PLAN Patient is positive for influenza A - continue Tamiflu for 5 days Continue empiric antibiotics with vancomycin and Zosyn MRSA swab Chest x-ray in the morning Respiratory sputum culture ABG if respiratory failure suspected empiric antibiotics Tailor antibiotics to cultures Blood cultures Avoid steroids if possible due to influenza infection reconsider empiric treatment if no improvement in 72 hours Hemodialysis per nephrology recommendations NEURO: Minimize central acting medications as possible. Maintain fall precautions, adequate lighting during the day PULMONARY: Supplemental 02 as needed. Maintain aspiration precautions at all times CARDIOVASCULAR: Follow hemodynamics. Vital signs per facility protocol GI & NUTRITION: Continue with nutritional support. Continue stool softeners and laxatives as needed. KIDNEYS & ELECTROLYTES: Strict monitoring of intake, output and overall fluid balance. Avoid nephrotoxic medications to the extent possible. Medications to be dosed according to renal function. Monitor electrolytes and replace as needed ENDOCRINE: Maintain blood glucose between 100-180 at all times. Hypoglycemia protocol in place INFECTIOUS DISEASE: Trend temperature, WBC and procalcitonin level Follow cultures, deescalate antibiotics as soon as possible. Panculture if new onset fever ONCOLOGY/HEMATOLOGY/COAGULATION: Monitor for s/s of bleeding Monitor hemoglobin, coagulation studies as needed SKIN: Pressure ulcer prevention per facility protocol Specialty mattress ORTHO/REHAB: Continue PT/OT Prophylaxis: Continue GI and DVT prophylaxis Code Status: Full Resuscitation Disposition: TBD Other: Total patient care time exceeds 35 minutes excluding all procedures. JOHNY GREEN May 02, 2024 09:29
[2024-05-02] MEDS: OSELTAMIVIR PHOSPHATE 75 MG CAP PO SCH (10:10)
[2024-05-02 10:41] LABS: ABG HCO3 25.1 mmol/L (21.0-28.0); ABG OXYGEN SATURATION 95.9 % (94.0-98.0); ABG PCO2 35 mmHg (35-48); ABG PH 7.475 (7.350-7.450); PO2, ARTERIAL BG 74.7 mmHg (83.0-108.0); VENT MODE, BG RA (ROOM AIR)
[2024-05-02] MEDS ORDERED: LEVO-70 PO (14:29)
[2024-05-02] MEDS ORDERED: ASPI-1005 PO (14:29)
[2024-05-02] MEDS ORDERED: OSEL75 PO (14:29)
--- NOTE | 2024-05-02 14:33 | DS ---
Discharge Summary Hospital Course Summary: DATE OF ADMISSION:[05/01/2024] DATE OF DISCHARGE:[05/02/2024] DISPOSITION:[Home] CONDITION:[Medically stable] CONSULTANTS:[Physician Credentialing Specialist, customer manager, inspector subassemblies] FOLLOW UP APPOINTMENTS:[PCP 2 to 3 days. Physician Credentialing Specialist as needed, customer manager one week. Stone Setter tomorrow 05/03 for dialysis] PROCEDURES:[None] IMAGING: report attached to summary MICROBIOLOGY: report attached to summary ACTIVITY:[Independent] HOME MEDICATIONS: see med recc NEW MEDICATIONS: See med rec [] EMERGENCY INSTRUCTIONS: The patient was instructed to present to the nearest Emergency departmentr or call 911 once their symptoms will return or worsen Store Leader(s): Patient is 49-year-old male with history of ESRD (MWF HD), prior history of hypertension (currently not on antihypertensive therapy as outpatient), who presented to the ER with chief complaint of shortness of breath. Symptoms started yesterday evening and progressively worsened overnight. Patient has been having fevers, chill, cough, rhinorrhea and congestion. Overnight, patient states that he was significantly short of breath prompting him to come to the ER for further evaluation. Patient is followed by Nephrology in [facility] he has been dialysis patient for the past two years. last dialysis session was on Wednesday last week. Patient is dialyzed usually with a left arm AV fistula and patient states that he underwent full session of hemodialysis on Wednesday. Patient denies any previous antibiotic drug allergies. Throughout the hospitalization patient received dialysis on 05/01 and 3 L was removed. Patient was evaluated by customer manager 2D echo showed more than 65% EF fracture EIA flow fused small pericardial effusion. Patient was cleared by Cardiology to be discharged home and follow-up in one week. Patient was also evaluated by drug and alcohol counsellor and that is cleared to be discharged home. Follow up with drug and alcohol counsellor as needed. Patient also follow up with inspector subassemblies tomorrow for dialysis 05/03/2024. Follow-up with PCP in 2 to 3 days. Patient denies any shortness of breath, chest pain, nausea, vomiting or any other discomfort. Procedure(s): REVIEW OF SYSTEMS CONSTITUTIONAL: Denies any Fevers, chills, malaise NEUROLOGICAL: Denies headache, amaurosis fugax, motor weakness, sensory defi cit, vertigo/spinning sensation, gait abnormalities, or tremors. ENT: No hearing loss, otalgia, otorrhea, rhinitis, rhinorrhea, hoarseness, or sore throat. CARDIOVASCULAR: Denies any chest discomfort PULMONARY: Denies any Shortness of breath, PND, orthopnea SLEEP: Denies morning headaches, daytime somnolence or napping. Denies difficulty falling asleep, staying asleep, waking from sleep. Denies knowledge of snoring. GASTROINTESTINAL: Denies any type of dysphagia to either liquids or solids. Denies nausea, vomiting, pyrosis, early satiety, abdominal pain, diarrhea, constipation, or changes in stool consistency or caliber. Denies coffee-ground emesis, hematemesis, hematochezia, or melanotic stools. GENITOURINARY: Denies frequency, urgency, nocturia, hematuria or incontinence ( Storage/Irritative symptoms.) Low urinary stream, straining to void, urinary intermittency or hesitancy, splitting of the voiding stream, terminal dribbling. ENDOCRINOLOGIC: Denies polyuria, polydipsia, polyphagia or heat/cold intolerances. HEMATOLOGIC: Denies thrombophilia/previous clots, or coagulopathy/bleeding disorders. ONCOLOGIC: Denies personal history of malignancy. DERMATOLOGIC: Denies rashes or pruritus. PSYCHIATRIC: Denies any suicidal or homicidal ideation. Denies hallucinations. Assessment/Plan: ASSESSMENT: Sepsis, POA, 2/2 influenza bronchopneumonia Acute influenza multifocal bronchopneumonia, POA Rule out heart failure exacerbation with pulmonary edema, POA Acute hypoxemic respiratory failure, POA Anemia likely due to renal disease, POA Mild thrombocytopenia, POA Demand ischemia, POA Mild hyperkalemia, POA History of ESRD on hemodialysis, POA Obesity POA Rule out ITZEL, POA Hx of Ileus, POA Home Medications: Reported Medications Lactulose (Lactulose) 10 Gram/15 Ml Solution, 15 ML PO DAILY 05/02/24 Folic Acid/Vitamin B Comp W-C (Silvina-Kati Tablet) 0.8 Mg Tablet, 1 TAB PO DAILY 05/02/24 Time spent arranging discharge: 31-60 minutes ATTESTATION BY PHYSICIAN I have seen and examined the patient. I reviewed the documentation, medical decision making, and treatment plan as noted by the mid-level provider above. I agree with the findings and plan of care. Justine Eid MD, [facility]ATARZYNA [facility] May 02, 2024 14:33
[2024-05-02 15:40] LABS: HEPATITIS B SURFACE ANTIBODY Positive (Reactive)
[2024-05-02 16:19] VITALS: BP 118/87; PULSE 70; RESP 20; TEMP 98.6; O2SAT 99
--- NOTE | 2024-05-02 16:20 | PN ---
CARDIOLOGY Reason for consult: Elevated trop HPI/story at presentation: This is a pleasant 49-year-old male with past medical history of breast with complaints of shortness of breath in the setting of influenza, volume overload and in the setting, was found to have elevated troponins and therefore, cardiology was consulted for further evaluation management. No active issues of chest pain at this time. Subjective: 05/02/2024 no complaints Past medical history: See below Allergies, Meds See chart Review of systems Review of Systems Constitutional: Negative for chills and fever. HENT: Negative for ear discharge and ear pain. Eyes: Negative for photophobia and discharge. Respiratory: Negative for cough, sputum production and stridor. Cardiovascular: Negative for chest pain and palpitations. Gastrointestinal: Negative for diarrhea and vomiting. Genitourinary: Negative for frequency. Musculoskeletal: Negative for myalgias. Skin: Negative for rash. Neurological: Negative for focal weakness and seizures. Endo/Heme/Allergies: Negative for polydipsia. Psychiatric/Behavioral: Negative for hallucinations. Vitals see chart PHYSICAL EXAMINATION GENERAL: The patient is alert and oriented*3 HEENT: Nonicteric sclerae, non traumatic HEART: Regular rate and rhythm with no murmurs LUNGS: Clear to auscultation bilaterally ABDOMEN: No acute issues, non tender GENITAL, RECTAL: deferred SKIN: No rash NEUROLOGIC: NFND EXTREMITIES: No edema ASSESSMENT VOLUME OVERLOAD At presentation, well-managed with dialysis Patient does not have urinary output RESPIRATORY FAILURE Possible pneumonia/volume overload in the differential Being managed per primary team In the setting of influenza, type A+, 04/27/2024 END-STAGE RENAL DISEASE On dialysis DEMAND ISCHEMIA With mildly elevated troponins Troponin of 144 at presentation, no chest pain EKG without significant ichemic changes 05/01/2024 HYPERTENSION, OBESITY, HYPERLIPIDEMIA CORE MEASURES pending OTHER MEDICAL PROBLEMS Anemia, thrombocytopenia PLAN 05/01/2024 Volume status best managed with dialysis patient is to have any significant urine output. [place] influenza likely source of ongoing respiratory issues and elevated troponins. Will manage conservatively. Echocardiogram is pending. No strong indication for full dose anticoagulation at this time. 05/02/2024 Much improved, currently on room air. Volume status is improved with dialysis. Influenza being treated by primary team, appreciate. Likely being discharged home today, will follow-up shortly in the office. Troponins are trending down. ATTESTATION I was involved substantially in the care of this patient Number and complexity of problems addressed: 2 or more stable chronic illnesses Amount and or complexity of data Review of prior external note(s) from each unique source: 2+ Ordering of each unique test : 0 Review of the result(s) of each unique test: 2+ Assessment requiring an independent historian(s): No Independent interpretation of test performed by another MD/QHCP/appropriate source (not separately reported) : No Discussion of management or test interpretation with external MD/QHCP/appropriate source (not separately reported) : No Risk status (cardiac, billing related): Moderate Vitals/Labs Vital Signs Date Time Temp Pulse Resp B/P (MAP) Pulse Ox O2 Delivery O2 Flow Rate FiO2 05/02/24 11:37 98.6 72 20 112/91 99 Nasal Cannula* 0 21 Laboratory Tests 05/02/24 05:10 Medications Current Medications Acetaminophen 1,000 mg ONCE ONCE PO Last administered on 05/01/24at 08:46; Start 05/01/24 at 08:00; Stop 05/01/24 at 08:01; Status DC Albuterol Sulfate 10 mg ONCE IH Last administered on 05/01/24at 09:13; Start 05/01/24 at 09:00; Stop 05/01/24 at 09:47; Status DC Pharmacy Profile Note 1 each AD MISC; Start 05/01/24 at 10:00; Stop 05/01/24 at 10:07; Status DC Vancomycin HCl 1 each AD IV; Start 05/01/24 at 10:00; Stop 05/15/24 at 09:59 Vancomycin HCl 500 ml @ 250 mls/hr ONCE ONCE IV Last administered on 05/01/24at 10:18; Start 05/01/24 at 10:00; Stop 05/01/24 at 11:59; Status DC Budesonide 0.5 mg Q12H IH Last administered on 05/02/24at 07:25; Start 05/01/24 at 10:00; Stop 05/31/24 at 09:59 Albuterol 1 udvial Q6H PRN IH; Start 05/01/24 at 10:00; Stop 05/31/24 at 09:59 Piperacillin Sod/ Tazobactam Sod 3.375 gm Q12H IVPB Last administered on 05/02/24at 10:10; Start 05/01/24 at 10:00; Stop 05/11/24 at 09:59 Ondansetron HCl 4 mg Q6H PRN IVP; Start 05/01/24 at 10:00; Stop 05/31/24 at 09:59 Pantoprazole Sodium 40 mg DAILY IVP Last administered on 05/02/24at 08:45; Start 05/02/24 at 09:00; Stop 06/01/24 at 08:59 Lactulose 30 gm DAILY PO Last administered on 05/02/24at 08:45; Start 05/01/24 at 13:00; Stop 05/02/24 at 10:28; Status DC Acetaminophen 650 mg Q6H PRN PO Last administered on 05/01/24at 14:42; Start 05/01/24 at 10:00; Stop 05/31/24 at 09:59 Heparin Sodium (Porcine) 5,000 unit TID SQ Last administered on 05/02/24at 15:20; Start 05/01/24 at 14:00; Stop 05/31/24 at 13:59 Vancomycin HCl 250 ml @ 125 mls/hr QMOWEFR[DIALYSIS] IV; Start 05/03/24 at 16:00; Stop 05/13/24 at 15:59 Oseltamivir Phosphate 75 mg Q24H PO Last administered on 05/01/24at 11:05; Start 05/01/24 at 10:30; Stop 05/01/24 at 12:25; Status DC Sodium Chloride 4 ml STK-MED ONCE IH Last administered on 05/01/24at 10:15; Start 05/01/24 at 10:14; Stop 05/01/24 at 10:14; Status DC Aspirin 81 mg Q24H PO Last administered on 05/02/24at 10:48; Start 05/01/24 at 11:00; Stop 05/31/24 at 10:59 Sodium Chloride 250 ml @ 0 mls/hr AD IV; Start 05/01/24 at 12:30; Stop 05/31/24 at 12:29 Sodium Chloride 1,000 ml @ 0 mls/hr ONCE IV Last administered on 05/02/24at 12:57; Start 05/01/24 at 12:30; Stop 05/31/24 at 12:29 Oseltamivir Phosphate 75 mg Q24H PO Last administered on 05/02/24at 10:10; Start 05/02/24 at 10:30; Stop 05/06/24 at 10:29 Epoetin Naga-epbx 10,000 unit QMOWEFR[DIALYSIS] SQ Last administered on 05/01/24at 17:10; Start 05/01/24 at 16:00; Stop 05/31/24 at 15:59 Potassium Chloride 100 ml @ 100 mls/hr AD PRN IV; Start 05/01/24 at 14:30; Stop 05/01/24 at 15:49; Status DC Potassium Chloride 20 meq AD PRN PO; Start 05/01/24 at 14:30; Stop 05/01/24 at 15:49; Status DC Potassium Chloride 20 meq AD PRN PO; Start 05/01/24 at 14:30; Stop 05/01/24 at 15:49; Status DC Magnesium Sulfate 50 ml @ 0 mls/hr PROTOCOL PRN IV; Start 05/01/24 at 14:30; Stop 05/01/24 at 15:49; Status DC Dextrose 50 ml AD PRN IV; Start 05/01/24 at 14:30; Stop 05/31/24 at 14:29 Glucagon 1 mg AD PRN IM; Start 05/01/24 at 14:30; Stop 05/31/24 at 14:29 Sodium Chloride 4 ml STK-MED ONCE IH Last administered on 05/01/24at 23:31; Start 05/01/24 at 23:29; Stop 05/01/24 at 23:30; Status DC Sodium Chloride 4 ml STK-MED ONCE IH Last administered on 05/02/24at 07:25; Start 05/02/24 at 07:07; Stop 05/02/24 at 07:08; Status DC Lactulose 10 gm DAILY PO; Start 05/03/24 at 09:00; Stop 06/02/24 at 08:59 Vitamin B Complex/ Vit C/Folic Acid 1 cap DAILY PO; Start 05/03/24 at 09:00; Stop 06/02/24 at 08:59 SHANKAR CONDE MD May 02, 2024 16:20
--- NOTE | 2024-05-02 19:17 | PN ---
SUBJECTIVE: A 49-year-old male with a history of diabetes mellitus and hypertension. He has a history of end-stage renal disease, on dialysis 3 times a week. The patient initially presented to the hospital with underlying chest pain. Cardiac workup is ongoing. The patient also found to have underlying influenza. He did receive dialysis yesterday with 3 liters of ultrafiltration. The patient's pulmonary symptoms have greatly improved. The patient's cardiac workup is ongoing. He is being seen as a followup visit for all the above. REVIEW OF SYSTEMS: GENERAL: He is feeling weak and tired. HEENT: No change in vision, no change in hearing, no nasal discharge, no sore throat. CARDIOVASCULAR: There is no current chest pain or palpitations. PULMONARY: As described above. GASTROINTESTINAL: He is tolerating diet. MUSCULOSKELETAL: Complains of weakness. PHYSICAL EXAMINATION: VITAL SIGNS: Blood pressure 118/87, pulse 70s. GENERAL: He is a chronically ill male, much older than appearing. HEENT: Head is atraumatic. Pupils equal, roving to light. Oropharynx is without exudate. Nares clear. NECK: There is no JVP. There is no thyromegaly. CARDIOVASCULAR: Regular. There is no S3, S4 gallop. LUNGS: Coarse with equal thoracic movement. ABDOMEN: Soft, nondistended, nontender. EXTREMITIES: No clubbing, no cyanosis. NEUROLOGIC: He is awake. He is alert. LABORATORY DATA: Sodium 140, BUN 53, creatinine 9.6. Troponin is 196. Hemoglobin 7.9, hematocrit 23. IMPRESSION: * End-stage renal disease, on dialysis. * Coronary artery disease. * Diabetes mellitus. * Hypertension. * Anemia. * Influenza. PLAN: The patient continues with dialysis 3 times a week. The patient's pulmonary symptoms have improved. The patient's oxygen will be weaned in anticipation for discharge to home. Once the patient is discharged, the patient will follow up at the dialysis unit. TID: [id number] RECEIPT: [id number]
[2024-05-03] MEDS ORDERED: Vitamin B Complex/Vit C/Folic Acid PO SCH (09:00)
[2024-05-03] MEDS ORDERED: LACTULOSE 20 GM/30 ML UDCUP PO SCH (09:00)
[2024-05-03 12:05] LABS: HEPATITIS B CORE AB TOTAL Non-Reactive (Nonreactive); HEPATITIS B SURFACE ANTIGEN Non-Reactive (Nonreactive); HEPATITIS C ANTIBODY Non-Reactive (Nonreactive)
[2024-05-03] MEDS ORDERED: VANCOMYCIN 1G/250ML KIT 250 ML IV SCH (16:00)
[2024-05-03 22:09] LABS: MYCOPLASMA AB IGM <770 U/mL (0-769)
== END 2024-05-02 16:20 | disposition home or self-care (01) ==
LOC: EDH 07:48 → EDHIP 09:30 → INTOOBSV 09:30 → EDHIP 05-02 16:34
PROVIDERS: ADMIT Internal Medicine; ATTEND Internal Medicine
DX: A41.9 Sepsis, unspecified organism (principal); Z20.822 Contact with and (suspected) exposure to COVID-19; R65.20 Severe sepsis without septic shock; J96.01 Acute respiratory failure with hypoxia; J11.08 Influenza due to unidentified influenza virus with specified pneumonia; D63.1 Anemia in chronic kidney disease; D69.6 Thrombocytopenia, unspecified; E87.5 Hyperkalemia; J12.9 Viral pneumonia, unspecified; I13.2 Hypertensive heart and chronic kidney disease with heart failure and with stage 5 chronic kidney disease, or end stage renal disease; E11.22 Type 2 diabetes mellitus with diabetic chronic kidney disease; I50.9 Heart failure, unspecified; N18.6 End stage renal disease; J18.0 Bronchopneumonia, unspecified organism; E78.5 Hyperlipidemia, unspecified; I24.89 Other forms of acute ischemic heart disease; E66.9 Obesity, unspecified; I25.10 Atherosclerotic heart disease of native coronary artery without angina pectoris; Z68.34 Body mass index [BMI] 34.0-34.9, adult; Z99.2 Dependence on renal dialysis; Z79.899 Other long term (current) drug therapy
CPT/HCPCS: 96366 ×4; 83036; 84443; 82550 ×3; 80076; 83735 ×2; 84484 ×4; 80048; 83880; 85025 ×2; 85610; 85651; 86803; 87040 ×2; 87880; 87804 ×2; 86738 ×2; 83605; 86706; 87340; 86704; 86140 ×2; 36415 ×2; 87635; 71045; 93306; 93356; 99291; 93005; 94640 ×2; 90935; 84145 ×2; 96372 ×2; 96365; 96375; 96367; 80053; 82803; 36600; J2543 ×3; J1644 ×4; Q5106; J3370; J2470; 94664; 96361; G0378; G0257